=== PATIENT | female | born 1955 | race African-American/Black ===

== ENCOUNTER 2018-07-30 06:57 | Emergency (ER) | payer MEDICARE ==
[2018-07-30] MEDS ORDERED: LIDOCAINE 5% (700 MG) TRANSDERMAL ADH..PATCH TP ONE (09:00)
--- NOTE | 2018-07-30 10:10 | RADIOLOGY REPORT (SQ) ---
EXAM DESCRIPTION: KNEE RIGHT 4 VIEWS COMPLETED DATE/TIME: 07/30/2018 9:44 am REASON FOR STUDY: pains COMPARISON: None. NUMBER OF VIEWS: Four views. TECHNIQUE: AP, lateral, and both oblique radiographic images acquired of the right knee. LIMITATIONS: None. FINDINGS: MINERALIZATION: Normal. BONES: No acute fracture or dislocation. No worrisome bone lesions. No significant osteophytes. JOINT: No effusion. No chondrocalcinosis. OTHER: No other significant finding. IMPRESSION: NEGATIVE STUDY OF THE RIGHT KNEE. NO EXPLANATION FOR PAIN. TECHNICAL DOCUMENTATION: JOB ID: [id number] [employer]- All Rights Reserved Reading location - IP/workstation name: [email or web address]
--- NOTE | 2018-07-30 11:29 | ER Document Report ---
ED General - General Chief Complaint: Knee Pain Stated Complaint: KNEE PAIN Time Seen by Provider: 07/30/18 08:51 TRAVEL OUTSIDE OF THE [place] IN LAST 30 DAYS: No - HPI Patient complains to provider of: Right knee pain Notes: Patient coming in for right knee pain and swelling. Patient states started acutely early this morning. Patient denies any injury denies any twisting falli ng or any other motions. Patient upon my evaluation is resting comfortably with obvious distress. Patient points to the lateral collateral and tibial plateau area as the areas of pain. Denies any fever chills nausea vomiting diarrhea. Patient denies any trauma - Related Data Allergies/Adverse Reactions: Sulfa (Sulfonamide Antibiotics) Allergy (Verified 07/30/18 09:53) Past Medical History - Social History Smoking Status: Never Smoker Chew tobacco use (# tins/day): No Frequency of alcohol use: Occasional Drug Abuse: None Family History: Reviewed & Not Pertinent Patient has suicidal ideation: No Patient has homicidal ideation: No Renal/ Medical History: Denies: Hx Peritoneal Dialysis Review of Systems - Review of Systems Constitutional: No symptoms reported EENT: No symptoms reported Cardiovascular: No symptoms reported Respiratory: No symptoms reported Gastrointestinal: No symptoms reported Genitourinary: No symptoms reported Female Genitourinary: No symptoms reported Musculoskeletal: Other - Knee pain Skin: No symptoms reported Hematologic/Lymphatic: No symptoms reported Neurological/Psychological: No symptoms reported -: Yes All other systems reviewed and negative Physical Exam - Vital signs Vitals: Temp Pulse Resp BP Pulse Ox 98.0 F 87 16 151/89 H 98 07/30/18 07:26 07/30/18 07:26 07/30/18 07:26 07/30/18 07:26 07/30/18 07:26 Interpretation: Normal - General General appearance: Appears well, Alert - HEENT Head: Normocephalic, Atraumatic Eyes: Normal Pupils: PERRL - Respiratory Respiratory status: No respiratory distress Chest status: Nontender Breath sounds: Normal Chest palpation: Normal - Cardiovascular Rhythm: Regular Heart sounds: Normal auscultation Murmur: No - Abdominal Inspection: Normal Distension: No distension Bowel sounds: Normal Tenderness: Nontender Organomegaly: No organomegaly - Back Back: Normal, Nontender - Extremities General upper extremity: Normal inspection, Nontender, Normal color, Normal ROM, Normal temperature General lower extremity: Normal inspection, Tender - Patient with slight tenderness along the lateral portion of the knee was not consistent with the lateral collateral ligament. Patient has no pain or laxity on anterior posterior valgus varus stressing of the knee left knee knee unaffected, Normal color, Normal ROM, Normal temperature, Normal weight bearing. No: Helen's sign - Neurological Neuro grossly intact: Yes Cognition: Normal Orientation: AAOx4 [place] Coma Scale Eye Opening: Spontaneous [place] Coma Scale Verbal: Oriented [place] Coma Scale Motor: Obeys Commands [place] Coma Scale Total: 15 Speech: Normal Motor strength normal: LUE, RUE, LLE, RLE Sensory: Normal - Psychological Associated symptoms: Normal affect, Normal mood - Skin Skin Temperature: Warm Skin Moisture: Dry Skin Color: Normal Course - Re-evaluation Re-evalutation: 07/30/18 13:32 X-rays were performed showing no critical pathology. More likely patient has a knee sprain. Did recommend Tylenol Motrin therapy along with Ultram for severe pain. Patient will be given an Tony wrap and will be discharged home. - Vital Signs Vital signs: Temp Pulse Resp BP Pulse Ox 97.8 F 84 14 166/91 H 100 07/30/18 11:32 07/30/18 11:32 07/30/18 11:32 07/30/18 11:32 07/30/18 11:32 Discharge - Discharge Clinical Impression: Knee sprain Qualifiers: Encounter type: initial encounter Involved ligament of knee: unspecified ligament Laterality: right Qualified Code(s): S83.91XA - Sprain of unspecified site of right knee, initial encounter Condition: Good Disposition: HOME, SELF-CARE Instructions: Ice & Elevation ([facility]), Oral Narcotic Medication ([facility]), Sprained Knee ([facility]) Additional Instructions: Your evaluation does not show any signs of fracture. Do believe he sprained her knee I recommend ice and heat along with Tylenol Motrin for pain control he may take the Ultram for severe pain return to ER symptoms worsen. Prescriptions: Ibuprofen [Motrin 600 mg Tablet] 600 mg PO Q8HP PRN #21 tablet PRN Reason: Tramadol HCl [Ultram 50 mg Tablet] 50 mg PO ASDIR PRN #20 tablet PRN Reason:
[2018-07-30 11:37] VITALS: BP 166/91
== END 2018-07-30 11:33 | disposition home or self-care (01) ==
LOC: ER 06:57
DX: S83.91XA Sprain of unspecified site of right knee, initial encounter (principal); X58.XXXA Exposure to other specified factors, initial encounter; Z88.2 Allergy status to sulfonamides
CPT/HCPCS: 99283

== ENCOUNTER 2018-09-01 02:21 | Emergency (ER) | payer MEDICARE ==
[2018-09-01 04:54] LABS: ABSOLUTE LYMPHOCYTES (AUTO) 1.8 10^3/uL (0.5-4.7); ABSOLUTE MONOCYTES (AUTO) 0.3 10^3/uL (0.1-1.4); ABSOLUTE NEUT (AUTO) 1.3 10^3/uL (1.7-8.2); BASOPHILS % (AUTO) 0.5 % (0-2); HEMATOCRIT 35.8 % (36.0-47.0); HEMOGLOBIN 11.8 g/dL (12.0-15.5); MEAN CORPUSCULAR HEMOGLOBIN 26.7 pg (27.0-33.4); MEAN CORPUSCULAR VOLUME 81 fl (80-97); MONOCYTES % (AUTO) 9.3 % (3-13); PLATELET COUNT 113 10^3/uL (150-450); RED BLOOD COUNT 4.43 10^6/uL (3.72-5.28); RED CELL DISTRIBUTION WIDTH 13.9 % (11.5-14.0); SEGMENTED NEUTROPHILS % (AUTO) 37.2 % (42-78); TOTAL CELLS COUNTED % (AUTO) 100 %; WHITE BLOOD COUNT 3.4 10^3/uL (4.0-10.5)
[2018-09-01] MEDS ORDERED: IBUPROFEN 600 MG TABLET PO ONE (05:10)
[2018-09-01] MEDS ORDERED: CYCLOBENZAPRINE HCL 10 MG TABLET PO ONE (05:11)
[2018-09-01 05:13] LABS: ALANINE AMINOTRANSFERASE 24 U/L (9-52); ALBUMIN 4.7 g/dL (3.5-5.0); ALKALINE PHOSPHATASE 153 U/L (38-126); ANION GAP 9 (5-19); ASPARTATE AMINO TRANSFERASE 23 U/L (14-36); BILIRUBIN,DIRECT 0.3 mg/dL (0.0-0.4); BILIRUBIN,TOTAL 0.3 mg/dL (0.2-1.3); BLOOD UREA NITROGEN 26 mg/dL (7-20); CALCIUM 9.9 mg/dL (8.4-10.2); CARBON DIOXIDE 24 mmol/L (22-30); CHLORIDE 107 mmol/L (98-107); GLUCOSE 146 mg/dL (75-110); POTASSIUM 4.5 mmol/L (3.6-5.0); SODIUM 139.9 mmol/L (137-145); TOTAL PROTEIN 8.9 g/dL (6.3-8.2)
--- NOTE | 2018-09-01 05:46 | ER Document Report ---
ED General - General Chief Complaint: Shoulder Pain Stated Complaint: NECK/RIGHT SHOULDER PAIN Time Seen by Provider: 09/01/18 03:55 Mode of Arrival: Ambulatory Information source: Patient Notes: Patient is a 63-year-old female who presents to the emergency department with complaints of right-sided neck pain that radiates to her scapula. Patient reports this started just a few hours prior to arrival. She denies any direct trauma to the area. States that she has been sitting in her chair for multiple hours knitting. Patient denies any chest pain or shortness of breath. Patient was initially made an JORGE LUIS 2 by the triage nurse due to her elevated blood pressure. Patient does report history of hypertension, states she takes her medications every morning, states that she is almost due for her medication. TRAVEL OUTSIDE OF THE [place] IN LAST 30 DAYS: No - Related Data Allergies/Adverse Reactions: Sulfa (Sulfonamide Antibiotics) Allergy (Verified 07/30/18 09:53) Past Medical History - General Information source: Patient - Social History Smoking Status: Never Smoker Frequency of alcohol use: None Drug Abuse: None Family History: Reviewed & Not Pertinent Patient has suicidal ideation: No Patient has homicidal ideation: No - Past Medical History Cardiac Medical History: Reports: Hx Hypertension Renal/ Medical History: Denies: Hx Peritoneal Dialysis Surgical Hx: Negative - Immunizations Immunizations up to date: Yes Review of Systems - Review of Systems Constitutional: No symptoms reported. denies: Chills, Fever, Malaise, Weakness EENT: No symptoms reported Cardiovascular: No symptoms reported. denies: Chest pain Respiratory: No symptoms reported. denies: Short of breath Gastrointestinal: No symptoms reported. denies: Abdominal pain Genitourinary: No symptoms reported Female Genitourinary: No symptoms reported Musculoskeletal: Neck pain Skin: No symptoms reported Hematologic/Lymphatic: No symptoms reported Neurological/Psychological: No symptoms reported Physical Exam - Vital signs Vitals: Temp Pulse Resp BP Pulse Ox 98.0 F 91 18 201/104 H 100 09/01/18 02:25 09/01/18 02:25 09/01/18 02:25 09/01/18 02:25 09/01/18 02:25 - Notes Notes: PHYSICAL EXAMINATION: GENERAL: Well-appearing, well-nourished and in no acute distress. HEAD: Atraumatic, normocephalic. EYES: Pupils equal round and reactive to light, extraocular movements intact, conjunctiva are normal. ENT: Nares patent, oropharynx clear without exudates. Moist mucous membranes. NECK: Normal range of motion, supple without lymphadenopathy LUNGS: Breath sounds clear to auscultation bilaterally and equal. No wheezes rales or rhonchi. HEART: Regular rate and rhythm without murmurs ABDOMEN: Soft, nontender, nondistended abdomen. No guarding, no rebound. No masses appreciated. Female : deferred Musculoskeletal: Tenderness to palpation to lateral splenius capitis muscle on the right side. There is no vertebral tenderness, step-off or deformity. NEUROLOGICAL: Cranial nerves grossly intact. Normal speech, normal gait. Normal sensory, motor exams PSYCH: Normal mood, normal affect. SKIN: Warm, Dry, normal turgor, no rashes or lesions noted. Course - Re-evaluation Re-evalutation: Patient's workup today has been unremarkable. Her physical examination is most consistent with a musculoskeletal pain. She has no vertebral tenderness, step- off or deformity. She has no headache or fever. A cardiac workup was initiated which is completely normal. Her troponin is negative. Her chest x-ray is unremarkable. Her EKG was reviewed which shows a sinus rhythm with no ST segment elevations or depressions. There is no previous EKG for comparison. Patient was given 10 mg of Flexeril orally as well as ibuprofen. Patient reports that her pain significantly improved after taking this medication which does suggest the pain is musculoskeletal in nature. Patient was given a dose of her blood pressure medication prior to discharge from the emergency department. Patient will be discharged home in stable condition. ED return precautions were discussed. - Vital Signs Vital signs: Temp Pulse Resp BP Pulse Ox 98.0 F 85 18 196/95 H 100 09/01/18 02:25 09/01/18 03:44 09/01/18 05:52 09/01/18 05:52 09/01/18 05:52 - Laboratory Result Diagrams: 09/01/18 04:37 09/01/18 04:37 Laboratory results interpreted by me: 09/01/18 09/01/18 04:37 04:37 WBC 3.4 L Hgb 11.8 L Hct 35.8 L MCH 26.7 L Plt Count 113 L Seg Neutrophils % 37.2 L Lymphocytes % 52.0 H Absolute Neutrophils 1.3 L BUN 26 H Glucose 146 H Alkaline Phosphatase 153 H Total Protein 8.9 H Discharge - Discharge Clinical Impression: Torticollis Condition: Stable Disposition: HOME, SELF-CARE Additional Instructions: Torticollis You have torticollis, often called "wry neck." This is due to spasm of neck muscles -- locking the neck into a crooked position. Many different problems can lead to torticollis, such as a minor injury, sleeping with tension on the neck, or inflammation in the glands of the neck. Torticollis is usually treated with heat to relax the neck muscles, but the physician may recommend cold packs if a minor injury is suspected as the cause. Muscle relaxing and antiinflammatory medicine are often prescribed. You may need a neck collar to support your head. Improvement is usually rapid. Usually, the neck can be moved fully within two days, although some pain may persist for a few weeks. Call the doctor at once if you worsen, or if you develop high fever, severe headache, numbness or weakness, or other alarming symptoms. Please take prescribed medications as directed. Please take ibuprofen 600 mg every 6 hours for pain and inflammation. Please do range of motion exercises to your neck as discussed. Follow-up with your primary care provider in the next 3-5 days for a follow-up. Return to the emergency department with any new or worsening symptoms to include development of fever. Prescriptions: Methocarbamol [Robaxin 750 mg Tablet] 750 mg PO QID #20 tablet Forms: Return to Work
[2018-09-01 05:55] VITALS: BP 196/95
[2018-09-01] MEDS ORDERED: HYDROCHLOROTHIAZIDE 12.5 MG TABLET PO ONE (05:58)
[2018-09-01] MEDS ORDERED: LISINOPRIL 10 MG TABLET PO ONE (05:58)
--- NOTE | 2018-09-01 10:15 | EKG REPORT ---
SEVERITY:- ABNORMAL ECG - SINUS RHYTHM PROBABLE LEFT ATRIAL ABNORMALITY LEFT VENTRICULAR HYPERTROPHY BORDERLINE PROLONGED QT INTERVAL : Confirmed by: Beckie Green MD 01-Sep-2018 10:14:05
== END 2018-09-01 06:08 | disposition home or self-care (01) ==
LOC: ER 02:21
DX: M43.6 Torticollis (principal); M54.2 Cervicalgia; I10 Essential (primary) hypertension; Z79.899 Other long term (current) drug therapy; Z88.2 Allergy status to sulfonamides
CPT/HCPCS: 93005; 99283; 36415; 85025; 80053; 84484; 93010; A9270 ×4

== ENCOUNTER 2018-12-01 20:59 | Emergency (ER) | payer MEDICARE, MEDICAID ==
[2018-12-02] MEDS ORDERED: ACETAMINOPHEN 325 MG TABLET PO ONE (00:33)
--- NOTE | 2018-12-02 00:34 | ER Document Report ---
ED Blood Pressure Problem - General Chief Complaint: High Blood Pressure Stated Complaint: BLOOD PRESSURE ELEVATED Time Seen by Provider: 12/02/18 00:16 TRAVEL OUTSIDE OF THE [place] IN LAST 30 DAYS: No - HPI Notes: Patient is a 63-year-old female that presents to the emergency department for chief complaint of hypertension. Patient reports a history of hypertension and is on hydrochlorothiazide and lisinopril. She saw her primary care doctor today who increased her lisinopril dosing. When she returned home she started to have "black spider webs" in her field of vision in both eyes. She states that she turned out the lights they went away. She checked her blood pressure after she noticed vision changes and states it was 190/105. Patient's blood pressure at her PCPs office was reportedly 168/84. Patient states about 30 minutes ago she started to develop a headache, this is while she was in the emergency room. She does report a history of trigeminal neuralgia and states she frequently gets facial pains but not usually headaches. She states it is focal between her eyebrows and a mild dull ache. Currently she states the floaters have resolved. She denies any focal numbness or weakness, vomiting, nausea, chest pain, shortness of breath and abdominal pain. Her PCP did draw blood work today which she does not have the results of yet. Past Medical History: Hypertension, leukopenia, trigeminal neuralgia Past Surgical History: Reviewed in chart Social History: Denies drugs alcohol and tobacco use Family History: Reviewed and noncontributory for presenting illness Allergies: Reviewed, see documented allergy list. REVIEW OF SYSTEMS: CONSTITUTIONAL : No fever No chills No diaphoresis No recent illness EENT: vision changes No congestion No sore throat CARDIOVASCULAR: No chest pain No palpitations RESPIRATORY: No shortness of breath No cough No difficulty breathing GASTROINTESTINAL: No abdominal pain No nausea No vomiting No diarrhea GENITOURINARY: No dysuria No hematuria No difficulty urinating MUSCULOSKELETAL: No back pain No leg pain No arm pain SKIN: No rashes No lesions LYMPHATIC: No swollen, enlarged glands. NEUROLOGICAL: No lightheadedness headache No weakness No paresthesias PSYCHIATRIC: No anxiety No depression PHYSICAL EXAMINATION: Vital signs reviewed, nursing noted reviewed. GENERAL: Well-appearing, well-nourished and in no acute distress. HEAD: Atraumatic, normocephalic. EYES: Eyes appear normal, extraocular movements intact, sclera anicteric, conjunctiva are normal. ENT: nares patent, oropharynx clear without exudates. Moist mucous membranes. NECK: Normal range of motion, supple without lymphadenopathy LUNGS: Breath sounds clear to auscultation bilaterally and equal. No wheezes r ales or rhonchi. HEART: Regular rate and rhythm without murmurs ABDOMEN: Soft, nontender, normoactive bowel sounds. No rebound, guarding, or rigidity. No masses appreciated. EXTREMITIES: Nontender, good range of motion, no pitting or edema. NEUROLOGICAL: No focal neurological deficits. Moves all extremities spontaneously Motor and sensory grossly intact on exam. PSYCH: Normal mood, normal affect. SKIN: Warm, Dry, normal turgor, no rashes or lesions noted on exposed skin - Related Data Allergies/Adverse Reactions: Sulfa (Sulfonamide Antibiotics) Allergy (Verified 07/30/18 09:53) Past Medical History - Social History Smoking Status: Never Smoker Family History: Reviewed & Not Pertinent - Past Medical History Cardiac Medical History: Reports: Hx Hypertension Renal/ Medical History: Denies: Hx Peritoneal Dialysis - Immunizations Immunizations up to date: Yes Physical Exam - Vital signs Vitals: Temp Pulse Resp BP Pulse Ox 97.5 F 86 16 174/81 H 99 12/01/18 21:13 12/01/18 21:13 12/01/18 21:13 12/01/18 21:13 12/01/18 21:13 Course - Re-evaluation Re-evalutation: 12/02/18 00:32 Vitals reviewed. Nursing notes reviewed. Patient is well-appearing and in no acute distress. Her current blood pressure is 174/84. Patient's visual changes have resolved. She developed a headache while in the emergency room and states this is atypical for her. 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 There is no acute stroke or intracranial hemorrhage. Patient had resolution of her headache with Tylenol. She is otherwise remained neurologically intact. Patient referred to ophthalmology to follow-up on her visual floaters. She was told to return to her primary care doctor for reevaluation of her blood pressure in the next 1 to 2 days. Patient stable and asymptomatic at discharge Head CT 12/02/18 00:26 IMPRESSION: No acute findings. Small encephalomalacia/infarct of the lateral right cerebellar lobe. - Vital Signs Vital signs: Temp Pulse Resp BP Pulse Ox 97.5 F 86 16 174/81 H 99 12/01/18 21:13 12/01/18 21:13 12/01/18 21:13 12/01/18 21:13 12/01/18 21:13 - EKG Interpretation by Me Additional EKG results interpreted by me: 12/02/18 00:34 Interpreted by myself [id number]: Normal sinus rhythm, rate 87, normal axis, borderline QT prolongation, no significant change from 09/01/2018 Discharge - Discharge Clinical Impression: Elevated blood pressure reading Floaters in visual field Qualifiers: Laterality: bilateral Qualified Code(s): H43.393 - Other vitreous opacities, bilateral Cephalgia Qualifiers: Headache type: unspecified Headache chronicity pattern: acute headache Intractability: not intractable Qualified Code(s): R51 - Headache Condition: Stable Disposition: HOME, SELF-CARE Instructions: High Blood Pressure ([facility]) Additional Instructions: Please return to the emergency department if you have any worsening, or concern of your symptoms. Please return to the emergency department if you develop chest pain, difficulty breathing, severe abdominal pain, or ongoing vomiting. Please follow-up with your primary care physician in 2-3 days and any other recommended physicians. If prescribed, take all medications as directed. If you have any questions or concerns do not hesitate to return the emergency department for evaluation. Referrals: CARL WINKLER MD [ACTIVE STAFF] - Follow up in 3-5 days
--- NOTE | 2018-12-02 01:06 | RADIOLOGY REPORT (SQ) ---
EXAM DESCRIPTION: CT HEAD WITHOUT IV CONTRAST COMPLETED DATE/TME: 12/02/2018 00:26 CLINICAL HISTORY: 63 years Female, headache COMPARISON: None. TECHNIQUE: No contrast. Coronal and sagittal reformat. This exam was performed according to our departmental dose-optimization program, which includes automated exposure control, adjustment of the mA and/or kV according to patient size and/or use of iterative reconstruction technique. Limitation: Streak artifact. FINDINGS: No hemorrhage. Small encephalomalacia/infarct of the lateral right cerebellar lobe. No mass, mass effect, or midline shift. Mild white matter microangiopathy. Right occipital cranial plate. Cranial bossing. Brain and extra-axial structures appear otherwise intact. IMPRESSION: No acute findings. Small encephalomalacia/infarct of the lateral right cerebellar lobe.
[2018-12-02 05:31] VITALS: BP 165/80
--- NOTE | 2018-12-02 07:34 | EKG REPORT ---
SEVERITY:- BORDERLINE ECG - SINUS RHYTHM PROBABLE LEFT ATRIAL ABNORMALITY BORDERLINE PROLONGED QT INTERVAL : Confirmed by: Constantine Bird MD 02-Dec-2018 07:33:33
== END 2018-12-02 02:05 | disposition home or self-care (01) ==
LOC: ER 20:59
DX: I10 Essential (primary) hypertension (principal); Z79.899 Other long term (current) drug therapy; H43.393 Other vitreous opacities, bilateral; R51 Headache; Z86.69 Personal history of other diseases of the nervous system and sense organs; Z88.2 Allergy status to sulfonamides
CPT/HCPCS: 93005; 99284; 70450; 93010; A9270